=== PATIENT | male | born 1960 | race Caucasian/White ===

== ENCOUNTER → 2016-10-29 | Outpatient (CLI) | payer BC ==
[~2016-10-29] VITALS: Ht 182.9 cm; Wt 108.9 kg
[~2016-10-29] MED LIST: /ONDA4TA OR; /PANT40TA OR; ASPI1TAB24 PO; ASPI81TA45 OR; LISI20TA5 OR; NS 1,000 ML IV SCH; PROPOFOL 200 MG/20 ML VIAL As Ordered ONE; SIMV20TA2 OR; SIMV40TA2 PO; TRAM50TA2 OR; VICO5TAB OR; fish oil PO; omega 3 PO; vitamin d PO
--- NOTE | 2016-10-29 10:33 | ROOR ---
Patient Name: Jaciel Rocha Procedure Date: 10/29/2016 9:53 AM Date of : 1960 Age: 56 Room: [facility] Gender: Male Note Status: Finalized Procedure: Colonoscopy Indications: High risk colon cancer surveillance: Personal history of colon cancer Providers: Roger Arriaga MD Referring MD: AMBER Charles PA-C Requesting Provider: Medicines: Monitored Anesthesia Care Complications: No immediate complications. Procedure: Pre-Anesthesia Assessment: - Prior to the procedure, a History and Physical was performed, and patient medications and allergies were reviewed. The patient is competent. The risks and benefits of the procedure and the sedation options and risks were discussed with the patient. All questions were answered and informed consent was obtained. Patient identification and proposed procedure were verified by the physician, the nurse and the anesthesiologist in the endoscopy suite. Mental Status Examination: alert and oriented. Airway Examination: normal oropharyngeal airway and neck mobility. Respiratory Examination: clear to auscultation. CV Examination: normal. Prophylactic Antibiotics: The patient does not require prophylactic antibiotics. Prior Anticoagulants: The patient has taken no previous anticoagulant or antiplatelet agents. ASA Grade Assessment: II - A patient with mild systemic disease. After reviewing the risks and benefits, the patient was deemed in satisfactory condition to undergo the procedure. The anesthesia plan was to use monitored anesthesia care (MAC). Immediately prior to administration of medications, the patient was re-assessed for adequacy to receive sedatives. The heart rate, respiratory rate, oxygen saturations, blood pressure, adequacy of pulmonary ventilation, and response to care were monitored throughout the procedure. The physical status of the patient was re-assessed after the procedure. The Colonoscope was introduced through the anus and advanced to the ileocolonic anastomosis. The colonoscopy was technically difficult and complex due to inadequate bowel prep and poor endoscopic visualization. The patient tolerated the procedure well. The quality of the bowel preparation was poor. Findings: The perianal and digital rectal examinations were normal. Multiple medium-mouthed diverticula were found in the sigmoid colon and descending colon. There was evidence of a prior end-to-end ileo-colonic anastomosis in the transverse colon. This was patent and was characterized by healthy appearing mucosa. The anastomosis was traversed. The exam was otherwise without abnormality. No additional abnormalities were found on retroflexion. Impression: - Preparation of the colon was poor. - Diverticulosis in the sigmoid colon and in the descending colon. - Patent end-to-end ileo-colonic anastomosis, characterized by healthy appearing mucosa. - The examination was otherwise normal. - No specimens collected. Recommendation: - Discharge patient to home (ambulatory). - Repeat colonoscopy in 3 years for surveillance based on personal history of colon cancer. Roger Arriaga MD Roger Arriaga MD 10/29/2016 10:32:16 AM This report has been signed electronically. Number of Addenda: 0 Note Initiated On: 10/29/2016 9:53 AM Estimated Blood Loss: Estimated blood loss: none.
[2016-10-29 10:50] VITALS: BP 138/78
== END ==
LOC: M OPP 09:07
PROVIDERS: ATTEND Surgery
DX: Z12.11 Encounter for screening for malignant neoplasm of colon (principal); Z85.038 Personal history of other malignant neoplasm of large intestine; K57.30 Diverticulosis of large intestine without perforation or abscess without bleeding; Z98.0 Intestinal bypass and anastomosis status; I10 Essential (primary) hypertension; E78.00 Pure hypercholesterolemia, unspecified; D64.9 Anemia, unspecified; R06.83 Snoring; Z92.21 Personal history of antineoplastic chemotherapy; Z79.82 Long term (current) use of aspirin; Z79.899 Other long term (current) drug therapy

== ENCOUNTER → 2017-01-15 | Outpatient (CLI) | payer BC ==
[~2017-01-15] MED LIST changes: -NS 1,000 ML IV SCH; -PROPOFOL 200 MG/20 ML VIAL As Ordered ONE
[2017-01-15 10:42] LABS: ALBUMIN 3.8 GM/DL (3.2-5.2); ALBUMIN/GLOBULIN RATIO 1.19 (1.00-1.93); ALKALINE PHOSPHATASE 89 U/L (45-117); ALT/SGPT 37 U/L (12-78); ANION GAP 8 MEQ/L (8-16); AST/SGOT 7 U/L (15-37); BILIRUBIN,TOTAL 0.4 MG/DL (0.2-1.0); BLOOD UREA NITROGEN 13 MG/DL (7-18); CALCIUM LEVEL 8.9 MG/DL (8.5-10.1); CARBON DIOXIDE LEVEL 27 MEQ/L (21-32); CHLORIDE LEVEL 106 MEQ/L (98-107); CHOLESTEROL LEVEL 216 MG/DL (<200); CREATININE FOR GFR 0.82 MG/DL (0.70-1.30); GLOMERULAR FILTRATION RATE > 60.0 (>56); GLUCOSE, FASTING 98 MG/DL (70-105); POTASSIUM SERUM 4.3 MEQ/L (3.5-5.1); SODIUM LEVEL 141 MEQ/L (136-145); TRIGLYCERIDES LEVEL 131 MG/DL (<150)
== END ==
LOC: M WUC 08:20
PROVIDERS: ATTEND Physician Assistant
DX: E78.5 Hyperlipidemia, unspecified (principal); I10 Essential (primary) hypertension

== ENCOUNTER → 2017-01-28 | Outpatient (REF) | payer BC | LOC: M LAB REF 17:38 | PROVIDERS: ATTEND Internal Medicine Medical Oncology | DX: C26.0 Malignant neoplasm of intestinal tract, part unspecified (principal) ==

== ENCOUNTER → 2017-05-11 | Outpatient (CLI) | payer BC ==
[~2017-05-11] MED LIST changes: +ASPI-161 PO; -ASPI1TAB24 PO
[2017-05-11 10:08] LABS: ALBUMIN/GLOBULIN RATIO 1.25 (1.00-1.93); ALKALINE PHOSPHATASE 87 U/L (45-117); ALT/SGPT 37 U/L (12-78); ANION GAP 9 MEQ/L (8-16); AST/SGOT 23 U/L (15-37); BILIRUBIN,TOTAL 0.5 MG/DL (0.2-1.0); BLOOD UREA NITROGEN 15 MG/DL (7-18); CALCIUM LEVEL 8.7 MG/DL (8.5-10.1); CARBON DIOXIDE LEVEL 28 MEQ/L (21-32); CHLORIDE LEVEL 103 MEQ/L (98-107); CHOLESTEROL LEVEL 224 MG/DL (<200); CREATININE FOR GFR 0.81 MG/DL (0.70-1.30); GLOMERULAR FILTRATION RATE > 60.0 (>56); GLUCOSE, FASTING 101 MG/DL (70-105); POTASSIUM SERUM 4.5 MEQ/L (3.5-5.1); SODIUM LEVEL 140 MEQ/L (136-145); TOTAL PROTEIN 7.2 GM/DL (6.4-8.2); TRIGLYCERIDES LEVEL 180 MG/DL (<150)
[2017-05-11 10:43] LABS: BASO % 0.5 % (0.0-1.0); EOS # 0.2 10^3/uL (0.0-0.50); EOS % 3.4 % (0.0-3.0); LYMPH # 2.7 10^3/uL (1.5-4.5); LYMPH % 41.3 % (24.0-44.0); MEAN CORPUSCULAR HEMOGLOBIN 28.8 pg (27.0-33.0); MEAN CORPUSCULAR HGB CONC 33.1 g/dl (32.0-36.5); MEAN CORPUSCULAR VOLUME 86.9 fl (80.0-96.0); MONO # 0.4 10^3/uL (0.0-0.8); MONO % 6.8 % (0.0-5.0); NEUTROPHILS # 3.1 10^3/uL (1.8-7.7); NEUTROPHILS % 47.7 % (36.0-66.0); PLATELET COUNT, AUTOMATED 245 10^3/uL (150-450); RED CELL DISTRIBUTION WIDTH 13.2 % (11.5-14.5); WHITE BLOOD COUNT 6.4 10^3/uL (4.0-10.0)
== END ==
LOC: M WUC 08:11
PROVIDERS: ATTEND Physician Assistant
DX: E78.5 Hyperlipidemia, unspecified (principal); Z86.2 Personal history of diseases of the blood and blood-forming organs and certain disorders involving the immune mechanism

== ENCOUNTER → 2017-08-12 | Outpatient (CLI) | payer BC ==
[2017-08-12 08:56] LABS: BASO % 0.4 % (0.0-1.0); EOS # 0.2 10^3/uL (0.0-0.50); EOS % 3.4 % (0.0-3.0); IMMATURE GRANULOCYTE % 0.3 % (0-0); LYMPH # 2.6 10^3/uL (1.5-4.5); LYMPH % 36.1 % (24.0-44.0); MEAN CORPUSCULAR HEMOGLOBIN 28.5 pg (27.0-33.0); MEAN CORPUSCULAR HGB CONC 33.1 g/dl (32.0-36.5); MEAN CORPUSCULAR VOLUME 86.2 fl (80.0-96.0); MONO # 0.6 10^3/uL (0.0-0.8); MONO % 8.6 % (0.0-5.0); NEUTROPHILS # 3.6 10^3/uL (1.8-7.7); NEUTROPHILS % 51.2 % (36.0-66.0); PLATELET COUNT, AUTOMATED 248 10^3/uL (150-450); WHITE BLOOD COUNT 7.1 10^3/uL (4.0-10.0)
[2017-08-12 09:34] LABS: ALBUMIN 4.1 GM/DL (3.2-5.2); ALBUMIN/GLOBULIN RATIO 1.32 (1.00-1.93); ALKALINE PHOSPHATASE 100 U/L (45-117); ALT/SGPT 46 U/L (12-78); ANION GAP 6 MEQ/L (8-16); AST/SGOT 29 U/L (7-37); BILIRUBIN,TOTAL 0.5 MG/DL (0.2-1.0); BLOOD UREA NITROGEN 12 MG/DL (7-18); CALCIUM LEVEL 8.9 MG/DL (8.5-10.1); CARBON DIOXIDE LEVEL 29 MEQ/L (21-32); CHLORIDE LEVEL 108 MEQ/L (98-107); CHOLESTEROL LEVEL 195 MG/DL (<200); CREATININE FOR GFR 0.77 MG/DL (0.70-1.30); GLOMERULAR FILTRATION RATE > 60.0 (>56); GLUCOSE, FASTING 99 MG/DL (70-105); POTASSIUM SERUM 4.3 MEQ/L (3.5-5.1); SODIUM LEVEL 143 MEQ/L (136-145); TOTAL PROTEIN 7.2 GM/DL (6.4-8.2); TRIGLYCERIDES LEVEL 201 MG/DL (<150)
== END ==
LOC: M WUC 08:10
DX: E78.5 Hyperlipidemia, unspecified (principal); Z86.2 Personal history of diseases of the blood and blood-forming organs and certain disorders involving the immune mechanism
CPT/HCPCS: 80053

== ENCOUNTER → 2018-01-28 | Outpatient (REF) | payer BC ==
[2018-01-29 12:05] LABS: CARCINOEMBRYONIC ANTIGEN 0.5 NG/ML (<2.5)
== END ==
LOC: M LAB REF 16:43
DX: C18.9 Malignant neoplasm of colon, unspecified (principal)

== ENCOUNTER → 2018-02-08 | Outpatient (REF) | payer BC ==
[2018-02-09 09:21] LABS: BASO % 0.3 % (0.0-1.0); EOS # 0.2 10^3/uL (0.0-0.50); EOS % 3.3 % (0.0-3.0); HEMATOCRIT 44.6 % (42.0-52.0); HEMOGLOBIN 13.8 g/dl (13.5-17.5); IMMATURE GRANULOCYTE % 0.7 % (0-3.0); LYMPH # 2.2 10^3/uL (1.5-4.5); LYMPH % 36.3 % (24.0-44.0); MEAN CORPUSCULAR HEMOGLOBIN 28.2 pg (27.0-33.0); MEAN CORPUSCULAR HGB CONC 30.9 g/dl (32.0-36.5); MEAN CORPUSCULAR VOLUME 91.2 fl (80.0-96.0); MONO # 0.5 10^3/uL (0.0-0.8); MONO % 7.9 % (0.0-5.0); NEUTROPHILS # 3.1 10^3/uL (1.8-7.7); NEUTROPHILS % 51.5 % (36.0-66.0); PLATELET COUNT, AUTOMATED 232 10^3/uL (150-450); RED BLOOD COUNT 4.89 10^6/uL (4.30-6.10); RED CELL DISTRIBUTION WIDTH 13.7 % (11.5-14.5); WHITE BLOOD COUNT 6.1 10^3/uL (4.0-10.0)
[2018-02-09 09:40] LABS: TOTAL 25(OH) VITAMIN D 13.7 NG/ML (30.0-100.0)
[2018-02-09 09:41] LABS: ALBUMIN 3.8 GM/DL (3.2-5.2); ALBUMIN/GLOBULIN RATIO 1.23 (1.00-1.93); ALKALINE PHOSPHATASE 91 U/L (45-117); ALT/SGPT 34 U/L (12-78); ANION GAP 8 MEQ/L (8-16); AST/SGOT 19 U/L (7-37); BILIRUBIN,TOTAL 0.4 MG/DL (0.2-1.0); BLOOD UREA NITROGEN 14 MG/DL (7-18); CALCIUM LEVEL 8.5 MG/DL (8.5-10.1); CARBON DIOXIDE LEVEL 27 MEQ/L (21-32); CHLORIDE LEVEL 108 MEQ/L (98-107); CHOLESTEROL LEVEL 183 MG/DL (<200); CHOLESTEROL RISK RATIO 3.812 (<5); CREATININE FOR GFR 0.81 MG/DL (0.70-1.30); FREE T4 0.78 NG/DL (0.76-1.46); GLOMERULAR FILTRATION RATE > 60.0 (>56); GLUCOSE, FASTING 105 MG/DL (70-100); HDL CHOLESTEROL 48 MG/DL (>40); LDL CHOLESTEROL 77.8 MG/DL (<100); NON-HDL-C 135 MG/DL; SODIUM LEVEL 143 MEQ/L (136-145); TOTAL PROTEIN 6.9 GM/DL (6.4-8.2); TRIGLYCERIDES LEVEL 286 MG/DL (<150)
== END ==
LOC: M LABDRWAD 09:05
DX: E78.5 Hyperlipidemia, unspecified (principal); Z86.2 Personal history of diseases of the blood and blood-forming organs and certain disorders involving the immune mechanism; Z83.49 Family history of other endocrine, nutritional and metabolic diseases; Z13.21 Encounter for screening for nutritional disorder
CPT/HCPCS: 84443

== ENCOUNTER → 2018-08-16 | Outpatient (REF) | payer BC ==
[2018-08-16 14:37] LABS: BASO % 0.3 % (0.0-1.0); EOS # 0.1 10^3/uL (0.0-0.50); EOS % 1.8 % (0.0-3.0); HEMATOCRIT 44.6 % (42.0-52.0); HEMOGLOBIN 14.4 g/dl (13.5-17.5); LYMPH # 2.2 10^3/uL (1.5-4.5); LYMPH % 31.9 % (24.0-44.0); MEAN CORPUSCULAR HGB CONC 32.3 g/dl (32.0-36.5); MEAN CORPUSCULAR VOLUME 86.6 fl (80.0-96.0); MONO # 0.5 10^3/uL (0.0-0.8); MONO % 7.4 % (0.0-5.0); NEUTROPHILS # 4.1 10^3/uL (1.8-7.7); NEUTROPHILS % 58.3 % (36.0-66.0); PLATELET COUNT, AUTOMATED 247 10^3/uL (150-450); RED BLOOD COUNT 5.15 10^6/uL (4.30-6.10)
[2018-08-16 14:47] LABS: ALBUMIN 4.1 GM/DL (3.2-5.2); ALT/SGPT 70 U/L (12-78); BILIRUBIN,TOTAL 0.5 MG/DL (0.2-1.0); BLOOD UREA NITROGEN 11 MG/DL (7-18); CALCIUM LEVEL 9.3 MG/DL (8.5-10.1); CARBON DIOXIDE LEVEL 29 MEQ/L (21-32); CHLORIDE LEVEL 105 MEQ/L (98-107); CREATININE FOR GFR 0.81 MG/DL (0.70-1.30); GLOMERULAR FILTRATION RATE > 60.0 (>56); GLUCOSE, FASTING 102 MG/DL (70-100); POTASSIUM SERUM 4.2 MEQ/L (3.5-5.1); SODIUM LEVEL 141 MEQ/L (136-145); TOTAL PROTEIN 7.2 GM/DL (6.4-8.2)
[2018-08-16 14:55] LABS: TOTAL 25(OH) VITAMIN D 66.6 NG/ML (30.0-100.0)
[2018-08-16 14:59] LABS: HEMOGLOBIN A1c 5.9 %
== END ==
LOC: M SFHCSACK 09:33
PROVIDERS: ATTEND Physician Assistant
DX: I10 Essential (primary) hypertension (principal); E78.5 Hyperlipidemia, unspecified; R73.09 Other abnormal glucose; E55.9 Vitamin D deficiency, unspecified

== ENCOUNTER → 2018-10-25 | Outpatient (REF) | payer BC | LOC: M SFHCSACK 16:02 | PROVIDERS: ATTEND Physician Assistant | DX: Z53.9 Procedure and treatment not carried out, unspecified reason (principal); I10 Essential (primary) hypertension; E78.5 Hyperlipidemia, unspecified; Z80.42 Family history of malignant neoplasm of prostate; E55.9 Vitamin D deficiency, unspecified ==

== ENCOUNTER → 2019-05-07 | Outpatient (REF) | payer BC ==
[~2019-05-07] MED LIST changes: -/ONDA4TA OR; -/PANT40TA OR; +ONDA-1 OR; +PROT1TAB2 OR; +ZOCO80TA PO
[2019-05-07 17:15] LABS: BASO % 0.3 % (0.0-1.0); EOS # 0.2 10^3/uL (0.0-0.5); EOS % 3.5 % (0.0-3.0); HEMATOCRIT 46.1 % (42.0-52.0); HEMOGLOBIN 14.9 g/dl (13.5-17.5); LYMPH # 2.2 10^3/uL (1.5-5.0); LYMPH % 37.6 % (24.0-44.0); MEAN CORPUSCULAR HEMOGLOBIN 29.4 pg (27.0-33.0); MEAN CORPUSCULAR HGB CONC 32.3 g/dl (32.0-36.5); MEAN CORPUSCULAR VOLUME 90.9 fl (80.0-96.0); MONO # 0.5 10^3/uL (0.0-0.8); MONO % 8.7 % (0.0-5.0); NEUTROPHILS # 2.9 10^3/uL (1.5-8.5); NEUTROPHILS % 49.6 % (36.0-66.0); PLATELET COUNT, AUTOMATED 234 10^3/uL (150-450); RED BLOOD COUNT 5.07 10^6/uL (4.30-6.10)
[2019-05-07 17:19] LABS: ALT/SGPT 30 U/L (12-78); BILIRUBIN,TOTAL 0.5 MG/DL (0.2-1.0); BLOOD UREA NITROGEN 12 MG/DL (7-18); CARBON DIOXIDE LEVEL 28 MEQ/L (21-32); CHLORIDE LEVEL 108 MEQ/L (98-107); CHOLESTEROL LEVEL 202 MG/DL (<200); CHOLESTEROL RISK RATIO 3.607 (<5); CREATININE FOR GFR 0.92 MG/DL (0.70-1.30); GLOMERULAR FILTRATION RATE > 60.0 (>56); GLUCOSE, FASTING 95 MG/DL (70-100); HDL CHOLESTEROL 56 MG/DL (>40); LDL CHOLESTEROL 105 MG/DL (<100); NON-HDL-C 146 MG/DL; POTASSIUM SERUM 4.2 MEQ/L (3.5-5.1); SODIUM LEVEL 143 MEQ/L (136-145); TOTAL PROTEIN 6.9 GM/DL (6.4-8.2); TRIGLYCERIDES LEVEL 206 MG/DL (<150)
[2019-05-09 09:49] LABS: TOTAL 25(OH) VITAMIN D 80.9 NG/ML (30.0-100.0)
== END ==
LOC: M SFHCSACK 08:36
PROVIDERS: ATTEND Physician Assistant
DX: E55.9 Vitamin D deficiency, unspecified (principal)
CPT/HCPCS: 80053; 80061; 82306; 85025; G0103

== ENCOUNTER → 2019-05-07 | Outpatient (CLI) | payer BC | LOC: M ADAMS 08:48 | PROVIDERS: ATTEND Physician Assistant | DX: I10 Essential (primary) hypertension (principal); E78.5 Hyperlipidemia, unspecified; Z80.42 Family history of malignant neoplasm of prostate ==

== ENCOUNTER 2019-10-12 09:33 | Day surgery (SDC) | payer BC ==
[~2019-10-12] VITALS: Ht 185.4 cm; Wt 101.6 kg
[~2019-10-12 09:33] MED LIST changes: +ASPI-255 PO; +NS 1,000 ML IV SCH; +OMEG12004 PO; +ROSU40TA4 PO; -SIMV40TA2 PO; +SIMV40TA20 PO; +VITA50005 PO
[2019-10-12] MEDS ORDERED: propofoL 500 MG/50 ML VIAL As Ordered ONE (10:19)
[2019-10-12] MEDS ORDERED: LIDOCAINE 2% INJ 100 MG/5 ML SDV (FOR ANES.) As Ordered ONE (10:19)
--- NOTE | 2019-10-12 10:57 | ROOR ---
Patient Name: Jaciel Rocha Procedure Date: 10/12/2019 10:18 AM Date of : 1960 Age: 59 Room: [facility] Gender: Male Note Status: Finalized Procedure: Colonoscopy Indications: High risk colon cancer surveillance: Personal history of colon cancer Providers: Roger Arriaga MD Referring MD: AMBER Eason Pa-c Requesting Provider: Medicines: Monitored Anesthesia Care Complications: No immediate complications. Procedure: Pre-Anesthesia Assessment: - Prior to the procedure, a History and Physical was performed, and patient medications and allergies were reviewed. The patient is competent. The risks and benefits of the procedure and the sedation options and risks were discussed with the patient. All questions were answered and informed consent was obtained. Patient identification and proposed procedure were verified by the physician, the nurse and the anesthesiologist in the endoscopy suite. Mental Status Examination: alert and oriented. Airway Examination: normal oropharyngeal airway and neck mobility. Respiratory Examination: clear to auscultation. CV Examination: normal. Prophylactic Antibiotics: The patient does not require prophylactic antibiotics. Prior Anticoagulants: The patient has taken aspirin, last dose was 2 days prior to procedure. ASA Grade Assessment: III - A patient with severe systemic disease. After reviewing the risks and benefits, the patient was deemed in satisfactory condition to undergo the procedure. The anesthesia plan was to use monitored anesthesia care (MAC). Immediately prior to administration of medications, the patient was re-assessed for adequacy to receive sedatives. The heart rate, respiratory rate, oxygen saturations, blood pressure, adequacy of pulmonary ventilation, and response to care were monitored throughout the procedure. The physical status of the patient was re-assessed after the procedure. The Colonoscope was introduced through the anus and advanced to the ileocolonic anastomosis. The colonoscopy was technically difficult and complex due to poor bowel prep, a tortuous colon and the patient's body habitus. Successful completion of the procedure was aided by applying abdominal pressure and lavage. Findings: The perianal and digital rectal examinations were normal. Multiple small-mouthed diverticula were found in the sigmoid colon and descending colon. The anastomosis appeared normal. not traversed, has a lot of semi solid stool at the area of the anastomosis, needing multiple lavage, multiple attempts at reentry to the area. No big masses seen but I could have missed small polyps as several areas of semisolid stool pooling despite multiple lavages Impression: - Diverticulosis in the sigmoid colon and in the descending colon. - The colonic anastomosis is normal. - No specimens collected. Recommendation: - Discharge patient to home (ambulatory). - Repeat colonoscopy in 1 year for surveillance. Roger Arriaga MD Roger Arriaga MD 10/12/2019 10:56:45 AM Electronically signed by Roger Arriaga MD Number of Addenda: 0 Note Initiated On: 10/12/2019 10:18 AM Estimated Blood Loss: Estimated blood loss: none.
[2019-10-12 11:13] VITALS: BP 119/72
== END 2019-10-12 11:29 | disposition home or self-care (01) ==
LOC: M OPP 09:33
PROVIDERS: ATTEND Surgery
DX: Z12.11 Encounter for screening for malignant neoplasm of colon (principal); Z85.038 Personal history of other malignant neoplasm of large intestine; K57.30 Diverticulosis of large intestine without perforation or abscess without bleeding; Z79.82 Long term (current) use of aspirin; Z79.899 Other long term (current) drug therapy

== ENCOUNTER → 2019-11-25 | Outpatient (REF) | payer BC ==
[~2019-11-25] MED LIST changes: -NS 1,000 ML IV SCH
== END ==
LOC: M SFHCADAM 11:08
PROVIDERS: ATTEND Physician Assistant
DX: D50.9 Iron deficiency anemia, unspecified (principal); E78.5 Hyperlipidemia, unspecified; R73.09 Other abnormal glucose; E55.9 Vitamin D deficiency, unspecified

== ENCOUNTER → 2020-04-24 | Outpatient (CLI) | payer BC ==
--- NOTE | 2020-05-14 16:27 | REP ---
LEFT SHOULDER SERIES CLINICAL: Left shoulder pain. TECHNIQUE: Internal rotation, external rotation, and Y view of the left shoulder. FINDINGS: Osseous structures, joint spaces, and surrounding soft tissues are age appropriate. No evidence for acute fracture or dislocation. No overt osteoarthritic degenerative changes are appreciated. Subacromial space is normal. No periarticular calcifications or loose bodies identified. IMPRESSION: Normal age appropriate left shoulder radiographs. MTDD
--- NOTE | 2020-05-16 07:29 | REP ---
ACROMIOCLAVICULAR JOINT STUDY CLINICAL: Left shoulder pain. TECHNIQUE: Neutral and weightbearing views of the right and left acromioclavicular joints. FINDINGS: The acromioclavicular joints are symmetric and stable on neutral and weightbearing views. No overt arthritic changes are appreciated. IMPRESSION: Normal symmetric appearance to the bilateral acromioclavicular joints. MTDD
== END ==
LOC: M ADAMS 15:11
PROVIDERS: ATTEND Physician Assistant
DX: M25.512 Pain in left shoulder (principal)

== ENCOUNTER → 2020-04-24 | Outpatient (CLI) | payer BC ==
[2020-04-24 17:18] LABS: CHOLESTEROL RISK RATIO 3.333 (<5)
[2020-04-24 17:26] LABS: TOTAL 25(OH) VITAMIN D 59.8 NG/ML (30.0-100.0)
== END ==
LOC: M LABDRWAD 15:14
PROVIDERS: ATTEND Physician Assistant
DX: E78.5 Hyperlipidemia, unspecified (principal); E55.9 Vitamin D deficiency, unspecified; Z12.5 Encounter for screening for malignant neoplasm of prostate

== ENCOUNTER → 2020-08-06 | Outpatient (CLI) | payer BC | LOC: M LABDRWAD 14:25 | PROVIDERS: ATTEND Ophthalmology | DX: G70.00 Myasthenia gravis without (acute) exacerbation (principal) ==

== ENCOUNTER → 2020-10-26 | Outpatient (CLI) | payer BC | LOC: M LABDRWAD 14:17 | PROVIDERS: ATTEND Psychiatry & Neurology Neurology | DX: G70.00 Myasthenia gravis without (acute) exacerbation (principal) ==

== ENCOUNTER → 2020-11-16 | Outpatient (CLI) | payer BC | LOC: M LABSMTC 10:18 | PROVIDERS: ATTEND Anesthesiology | DX: Z01.812 Encounter for preprocedural laboratory examination (principal) ==

== ENCOUNTER 2020-11-21 07:43 | Day surgery (SDC) | payer BC ==
[~2020-11-21] VITALS: Ht 185.4 cm; Wt 109.3 kg
[~2020-11-21 07:43] MED LIST changes: +NS 1,000 ML IV ONE
--- NOTE | 2020-11-21 09:53 | ROOR ---
Patient Name: Jaciel Rocha Procedure Date: 11/21/2020 9:15 AM Date of : 1960 Age: 60 Room: [facility] Gender: Male Note Status: Finalized Procedure: Colonoscopy Indications: High risk colon cancer surveillance: Personal history of colon cancer Providers: Roger Arriaga MD Referring MD: Deniz Wheeler MD Requesting Provider: Medicines: Monitored Anesthesia Care Complications: No immediate complications. Procedure: Pre-Anesthesia Assessment: - Prior to the procedure, a History and Physical was performed, and patient medications and allergies were reviewed. The patient is competent. The risks and benefits of the procedure and the sedation options and risks were discussed with the patient. All questions were answered and informed consent was obtained. Patient identification and proposed procedure were verified by the physician, the nurse and the anesthesiologist in the endoscopy suite. Mental Status Examination: alert and oriented. Airway Examination: normal oropharyngeal airway and neck mobility. Respiratory Examination: clear to auscultation. CV Examination: normal. Prophylactic Antibiotics: The patient does not require prophylactic antibiotics. Prior Anticoagulants: The patient has taken no previous anticoagulant or antiplatelet agents except for aspirin. ASA Grade Assessment: III - A patient with severe systemic disease. After reviewing the risks and benefits, the patient was deemed in satisfactory condition to undergo the procedure. The anesthesia plan was to use monitored anesthesia care (MAC). Immediately prior to administration of medications, the patient was re-assessed for adequacy to receive sedatives. The heart rate, respiratory rate, oxygen saturations, blood pressure, adequacy of pulmonary ventilation, and response to care were monitored throughout the procedure. The physical status of the patient was re-assessed after the procedure. The Colonoscope was introduced through the anus and advanced to the ileocolonic anastomosis. The colonoscopy was somewhat difficult due to a tortuous colon. Successful completion of the procedure was aided by applying abdominal pressure. The patient tolerated the procedure well. The quality of the bowel preparation was adequate to identify polyps. Findings: The perianal and digital rectal examinations were normal. A few small-mouthed diverticula were found in the sigmoid colon. There was evidence of a prior [id number] ileo-colonic anastomosis in the transverse colon. This was patent and was characterized by erythema. The anastomosis was traversed. This was biopsied with a cold forceps for histology. Estimated blood loss was minimal. The retroflexed view of the distal rectum and anal verge was normal and showed no anal or rectal abnormalities. Impression: - Diverticulosis in the sigmoid colon. - Patent [id number]-[id number] ileo-colonic anastomosis, characterized by erythema. Biopsied. - The distal rectum and anal verge are normal on retroflexion view. Recommendation: - Discharge patient to home (ambulatory). - Await pathology results. - Telephone my office for pathology results in 1 week. - Repeat colonoscopy in 3 years for surveillance. Procedure Code(s): --- Professional --- 68924, Colonoscopy, flexible; with biopsy, single or multiple Diagnosis Code(s): --- Professional --- Z85.038, Personal history of other malignant neoplasm of large intestine Z98.0, Intestinal bypass and anastomosis status K57.30, Diverticulosis of large intestine without perforation or abscess without bleeding CPT copyright 2019 [employer]. All rights reserved. The codes documented in this report are preliminary and upon mate chief review may be revised to meet current compliance requirements. Roger Arriaga MD Roger Arriaga MD 11/21/2020 9:53:23 AM Electronically signed by Roger Arriaga MD Number of Addenda: 0 Note Initiated On: 11/21/2020 9:15 AM Estimated Blood Loss: Estimated blood loss was minimal.
[2020-11-21 10:14] VITALS: BP 131/76
== END 2020-11-21 10:16 | disposition home or self-care (01) ==
LOC: M OPP 07:43
PROVIDERS: ATTEND Surgery
DX: Z12.11 Encounter for screening for malignant neoplasm of colon (principal); Z85.038 Personal history of other malignant neoplasm of large intestine; D12.6 Benign neoplasm of colon, unspecified; K57.30 Diverticulosis of large intestine without perforation or abscess without bleeding; Z98.0 Intestinal bypass and anastomosis status; I10 Essential (primary) hypertension; E78.5 Hyperlipidemia, unspecified; Z79.82 Long term (current) use of aspirin; Z79.899 Other long term (current) drug therapy

== ENCOUNTER → 2021-02-02 | Outpatient (CLI) | payer BC ==
[~2021-02-02] MED LIST changes: +ERGO500029 PO; -NS 1,000 ML IV ONE; -VITA50005 PO
[2021-02-02 11:51] LABS: BLOOD UREA NITROGEN 11 MG/DL (7-18); CALCIUM LEVEL 9.2 MG/DL (8.5-10.1); CARBON DIOXIDE LEVEL 31 MEQ/L (21-32); CHLORIDE LEVEL 107 MEQ/L (98-107); CREATININE FOR GFR 0.85 MG/DL (0.70-1.30); FREE T4 0.76 NG/DL (0.76-1.46); GLOMERULAR FILTRATION RATE > 60.0 (>56); GLUCOSE, FASTING 100 MG/DL (70-100); POTASSIUM SERUM 4.3 MEQ/L (3.5-5.1); SODIUM LEVEL 139 MEQ/L (136-145); THYROID STIMULATING HORMONE 0.562 uIU/ML (0.358-3.740)
[2021-02-04 17:00] LABS: CORTISOL AM 7.1 UG/DL (4.3-22.4); TESTOSTERONE 49 NG/DL (241-827)
[2021-02-04 17:01] LABS: FOLLICLE STIMULATING HORMONE 7.1 mIU/mL (1.4-18.1); LUTEINIZING HORMONE 3.4 mIU/mL (1.5-9.3)
== END ==
LOC: M LAB 10:49
PROVIDERS: ATTEND Internal Medicine Endocrinology, Diabetes & Metabolism
DX: D49.7 Neoplasm of unspecified behavior of endocrine glands and other parts of nervous system (principal)

== ENCOUNTER 2021-03-15 14:24 | Emergency (ER) | payer BC ==
[~2021-03-15] VITALS: Ht 185.4 cm; Wt 113.6 kg
--- NOTE | 2021-03-15 15:17 | REP ---
INDICATION: CHEST PAIN. COMPARISON: Comparison chest x-ray is from November 22, 2015. TECHNIQUE: Portable upright AP chest radiograph. FINDINGS: There is a granulomatous nodule in the left infrahilar region unchanged. Pleural angles are sharp. Lungs are otherwise clear. Cardiomediastinal silhouette is unremarkable. EKG monitoring electrodes are seen.. IMPRESSION: No active disease. <Electronically signed by Gonzalez Cole > 03/15/21 0110
[2021-03-15 15:18] LABS: BASO % 0.3 % (0.0-1.0); EOS # 0.2 10^3/uL (0.0-0.5); EOS % 2.5 % (0.0-3.0); HEMATOCRIT 42.3 % (42.0-52.0); LYMPH # 2.2 10^3/uL (1.5-5.0); LYMPH % 28.4 % (24.0-44.0); MEAN CORPUSCULAR HEMOGLOBIN 28.7 pg (27.0-33.0); MEAN CORPUSCULAR HGB CONC 33.1 g/dl (32.0-36.5); MEAN CORPUSCULAR VOLUME 86.7 fl (80.0-96.0); MONO # 0.7 10^3/uL (0.0-0.8); MONO % 9.5 % (2.0-8.0); NEUTROPHILS # 4.5 10^3/uL (1.5-8.5); NEUTROPHILS % 59.2 % (36.0-66.0); PLATELET COUNT, AUTOMATED 249 10^3/uL (150-450); RED BLOOD COUNT 4.88 10^6/uL (4.30-6.10); WHITE BLOOD COUNT 7.6 10^3/uL (4.0-10.0)
[2021-03-15 15:28] LABS: INR 0.96; PROTHROMBIN TIME 13.2 SECONDS (12.7-14.5)
[2021-03-15 15:31] LABS: D-DIMER QUANT 284.07 ng/ml (<500)
[2021-03-15 15:48] LABS: ALBUMIN 4.2 GM/DL (3.2-5.2); ALT/SGPT 37 U/L (12-78); BILIRUBIN,DIRECT 0.1 MG/DL (0.0-0.2); BILIRUBIN,TOTAL 0.3 MG/DL (0.2-1.0); BLOOD UREA NITROGEN 12 MG/DL (7-18); CALCIUM LEVEL 9.2 MG/DL (8.5-10.1); CARBON DIOXIDE LEVEL 29 MEQ/L (21-32); CHLORIDE LEVEL 109 MEQ/L (98-107); CK-MB VALUE MASS 8.6 NG/ML (<3.6); CPK CREATINE PHOSPHOKINASE 466 U/L (39-308); CREATININE FOR GFR 0.94 MG/DL (0.70-1.30); GLOMERULAR FILTRATION RATE > 60.0 (>56); GLUCOSE, FASTING 99 MG/DL (70-100); LIPASE 171 U/L (73-393); MB/CK RELATIVE INDEX 1.85 (< OR =4); POTASSIUM SERUM 3.7 MEQ/L (3.5-5.1); SODIUM LEVEL 144 MEQ/L (136-145); TROPONIN I < 0.02 NG/ML (< 0.10)
[2021-03-15 16:30] VITALS: BP 140/68
--- NOTE | 2021-03-16 09:31 | ECGEPIP ---
[facility] - ED Test Date: 2021-03-15 Pat Name: JESSICA AC Department: Room: - Gender: Male [employer] Operator: LISA : 1960 Requested By: FRANCIS GIMENEZ Order Number: [id number] Reading MD: Carmita Matthews Measurements Intervals [place] Rate: 75 P: 61 ME: 168 QRS: -17 QRSD: 112 T: 84 QT: 414 QTc: 462 Interpretive Statements Normal sinus rhythm Incomplete right bundle branch block NSTTW abnormalities similar 11/22/15 Electronically Signed on 03-16-2021 9:31:04 EDT by Carmita Matthews
== END 2021-03-15 16:57 | disposition home or self-care (01) ==
LOC: M ED 14:24 → EDBD 14:24 → M ED 16:57
DX: R07.89 Other chest pain (principal); I45.19 Other right bundle-branch block; E78.5 Hyperlipidemia, unspecified; Z80.0 Family history of malignant neoplasm of digestive organs; Z92.21 Personal history of antineoplastic chemotherapy; Z90.49 Acquired absence of other specified parts of digestive tract; Z79.82 Long term (current) use of aspirin; Z79.899 Other long term (current) drug therapy

== ENCOUNTER → 2021-04-13 | Outpatient (CLI) | payer BC ==
[2021-04-13 10:45] LABS: CHOLESTEROL RISK RATIO 3.395 (<5)
== END ==
LOC: M LAB 09:03
PROVIDERS: ATTEND Physician Assistant
DX: E78.00 Pure hypercholesterolemia, unspecified (principal); R74.8 Abnormal levels of other serum enzymes

== ENCOUNTER → 2021-05-13 | Outpatient (REF) | payer BC ==
[2021-05-13 16:33] LABS: PROLACTIN 3.4 NG/ML (2.1-17.7)
== END ==
LOC: M LABDRWAD 15:10
PROVIDERS: ATTEND Internal Medicine Endocrinology, Diabetes & Metabolism
DX: Z13.89 Encounter for screening for other disorder (principal)

== ENCOUNTER → 2021-05-13 | Outpatient (REF) | payer BC | LOC: M SFHCADAM 11:18 | PROVIDERS: ATTEND Physician Assistant | DX: R74.8 Abnormal levels of other serum enzymes (principal) ==

== ENCOUNTER → 2021-09-21 | Outpatient (CLI) | payer BC ==
[2021-09-21 09:25] LABS: HEMATOCRIT 48.7 % (42.0-52.0); HEMOGLOBIN 15.7 g/dl (13.5-17.5); MEAN CORPUSCULAR HEMOGLOBIN 28.5 pg (27.0-33.0); MEAN CORPUSCULAR HGB CONC 32.2 g/dl (32.0-36.5); MEAN CORPUSCULAR VOLUME 88.5 fl (80.0-96.0); PLATELET COUNT, AUTOMATED 238 10^3/uL (150-450); WHITE BLOOD COUNT 6.1 10^3/uL (4.0-10.0)
[2021-09-21 09:49] LABS: ALBUMIN 3.9 GM/DL (3.2-5.2); ALT/SGPT 33 U/L (12-78); BILIRUBIN,TOTAL 0.5 MG/DL (0.2-1.0); BLOOD UREA NITROGEN 13 MG/DL (7-18); CALCIUM LEVEL 9.3 MG/DL (8.5-10.1); CARBON DIOXIDE LEVEL 29 MEQ/L (21-32); CHLORIDE LEVEL 108 MEQ/L (98-107); CHOLESTEROL LEVEL 228 MG/DL (<200); CHOLESTEROL RISK RATIO 4.851 (<5); CREATININE FOR GFR 0.86 MG/DL (0.70-1.30); GLOMERULAR FILTRATION RATE > 60.0 (>56); GLUCOSE, FASTING 96 MG/DL (70-100); HDL CHOLESTEROL 47 MG/DL (>40); LDL CHOLESTEROL 134 MG/DL (<100); NON-HDL-C 181 MG/DL; POTASSIUM SERUM 4.5 MEQ/L (3.5-5.1); SODIUM LEVEL 142 MEQ/L (136-145); TOTAL PROTEIN 7.2 GM/DL (6.4-8.2); TRIGLYCERIDES LEVEL 234 MG/DL (<150)
== END ==
LOC: M LAB 08:21
PROVIDERS: ATTEND Physician Assistant
DX: E78.00 Pure hypercholesterolemia, unspecified (principal)

== ENCOUNTER → 2021-09-30 | Outpatient (CLI) | payer BC ==
[2021-09-30 21:38] LABS: PROLACTIN 2.1 NG/ML (2.1-17.7)
== END ==
LOC: M WUC 15:16
PROVIDERS: ATTEND Internal Medicine Endocrinology, Diabetes & Metabolism
DX: D49.7 Neoplasm of unspecified behavior of endocrine glands and other parts of nervous system (principal)

== ENCOUNTER → 2022-02-15 | Outpatient (CLI) | payer BC ==
[2022-02-15 09:17] LABS: BASO % 0.5 % (0.0-1.0); EOS # 0.2 10^3/uL (0.0-0.5); EOS % 2.7 % (0.0-3.0); HEMATOCRIT 44.3 % (42.0-52.0); LYMPH # 2.5 10^3/uL (1.5-5.0); MEAN CORPUSCULAR HEMOGLOBIN 29.1 pg (27.0-33.0); MEAN CORPUSCULAR HGB CONC 33.9 g/dl (32.0-36.5); MONO # 0.6 10^3/uL (0.0-0.8); MONO % 7.5 % (2.0-8.0); NEUTROPHILS # 4.3 10^3/uL (1.5-8.5); NEUTROPHILS % 56.2 % (36.0-66.0); PLATELET COUNT, AUTOMATED 222 10^3/uL (150-450); RED BLOOD COUNT 5.15 10^6/uL (4.30-6.10); WHITE BLOOD COUNT 7.6 10^3/uL (4.0-10.0)
[2022-02-15 09:53] LABS: ALT/SGPT 38 U/L (12-78); BILIRUBIN,TOTAL 0.8 MG/DL (0.2-1.0); BLOOD UREA NITROGEN 8 MG/DL (7-18); CALCIUM LEVEL 9.5 MG/DL (8.8-10.2); CARBON DIOXIDE LEVEL 28 MEQ/L (21-32); CHLORIDE LEVEL 107 MEQ/L (98-107); CREATININE FOR GFR 0.83 MG/DL (0.70-1.30); GLOMERULAR FILTRATION RATE > 60.0 (>49); GLUCOSE, FASTING 100 MG/DL (70-100); POTASSIUM SERUM 3.9 MEQ/L (3.5-5.1); SODIUM LEVEL 140 MEQ/L (136-145); TOTAL PROTEIN 6.7 GM/DL (6.4-8.2)
== END ==
LOC: M LAB 08:59
PROVIDERS: ATTEND Internal Medicine Medical Oncology
DX: C18.9 Malignant neoplasm of colon, unspecified (principal)

== ENCOUNTER → 2022-04-08 | Outpatient (CLI) | payer BC ==
[~2022-04-08] MED LIST changes: +ATOR40TA75
== END ==
LOC: M ADAMS 15:37
PROVIDERS: ATTEND Internal Medicine Endocrinology, Diabetes & Metabolism
DX: D49.7 Neoplasm of unspecified behavior of endocrine glands and other parts of nervous system (principal)

== ENCOUNTER → 2022-08-23 | Outpatient (CLI) | payer BC ==
[2022-08-23 11:49] LABS: CHOLESTEROL RISK RATIO 3.43 (<5); HDL CHOLESTEROL 47.7 MG/DL (>40); LDL CHOLESTEROL 91.5 MG/DL (<100)
== END ==
LOC: M LAB 10:56
PROVIDERS: ATTEND Physician Assistant
DX: E78.5 Hyperlipidemia, unspecified (principal); R74.8 Abnormal levels of other serum enzymes; Z12.5 Encounter for screening for malignant neoplasm of prostate
CPT/HCPCS: 36415; 80061; 82550; G0103

== ENCOUNTER → 2022-10-29 | Outpatient (CLI) | payer BC ==
[2022-10-29 17:40] LABS: PROLACTIN 2.49 NG/ML (2.1-17.7)
[2022-10-29 17:42] LABS: FREE T4 1.04 NG/DL (0.89-1.76)
== END ==
LOC: M WUC 14:56
PROVIDERS: ATTEND Internal Medicine Endocrinology, Diabetes & Metabolism
DX: D49.7 Neoplasm of unspecified behavior of endocrine glands and other parts of nervous system (principal)

== ENCOUNTER → 2023-02-23 | Outpatient (REF) | payer BC ==
[~2023-02-23] MED LIST changes: +CABE0.5T
[2023-02-23 13:42] LABS: HEMATOCRIT 42.5 % (42.0-52.0); HEMOGLOBIN 13.8 g/dl (13.5-17.5); MEAN CORPUSCULAR HEMOGLOBIN 29.1 pg (27.0-33.0); MEAN CORPUSCULAR HGB CONC 32.5 g/dl (32.0-36.5); MEAN CORPUSCULAR VOLUME 89.7 fl (80.0-96.0); PLATELET COUNT, AUTOMATED 262 10^3/uL (150-450); RED BLOOD COUNT 4.74 10^6/uL (4.30-6.10); WHITE BLOOD COUNT 5.9 10^3/uL (4.0-10.0)
[2023-02-23 14:03] LABS: ALBUMIN 3.9 G/DL (3.2-5.2); ALKALINE PHOSPHATASE 82 U/L (46-116); ALT/SGPT 28 U/L (7.0-40); AST/SGOT 15 U/L (<34); BILIRUBIN,TOTAL 0.7 MG/DL (0.3-1.2); BLOOD UREA NITROGEN 9 MG/DL (9-23); CALCIUM LEVEL 10.2 MG/DL (8.3-10.6); CARBON DIOXIDE LEVEL 29 MMOL/L (20-31); CHLORIDE LEVEL 104 MMOL/L (98-107); CREATININE FOR GFR 0.77 MG/DL (0.70-1.30); CREATININE, URINE 48.7 MG/DL; GLOMERULAR FILTRATION RATE > 60.0 (>49); GLUCOSE, FASTING 100 MG/DL (74-106); MALB URINE SIEMENS < 3.0 MG/L; MAU/CREAT RATIO 6.1 MCG/MG (0.0-30.0); POTASSIUM SERUM 4.4 MMOL/L (3.5-5.1); SODIUM LEVEL 139 MMOL/L (136-145); TOTAL PROTEIN 6.4 G/DL (5.7-8.2)
== END ==
LOC: M SFHCADAM 08:24
PROVIDERS: ATTEND Physician Assistant
DX: I10 Essential (primary) hypertension (principal); R97.20 Elevated prostate specific antigen [PSA]; Z85.038 Personal history of other malignant neoplasm of large intestine; E78.5 Hyperlipidemia, unspecified
CPT/HCPCS: 80053; 82043; 85027; G0103

== ENCOUNTER → 2023-06-17 | Outpatient (CLI) | payer BC ==
[2023-06-17 11:00] LABS: CORTISOL AM 16.7 UG/DL (4.3-22.4)
[2023-06-17 11:04] LABS: FREE T4 1.05 NG/DL (0.89-1.76)
[2023-06-17 11:05] LABS: PROLACTIN 3.55 NG/ML (2.1-17.7)
== END ==
LOC: M WUC 08:25
PROVIDERS: ATTEND Internal Medicine Endocrinology, Diabetes & Metabolism
DX: D49.7 Neoplasm of unspecified behavior of endocrine glands and other parts of nervous system (principal)

== ENCOUNTER → 2023-07-23 | Day surgery (SDC) | payer BC ==
[~2023-07-23] VITALS: Ht 182.9 cm; Wt 103.1 kg
[~2023-07-23] MED LIST changes: -ATOR40TA75; +ATOR40TA75 PO; +BSS IRRIG/VANCO(10MG)/TOBRA(5MG)/EPINEPH(1:1000-0.5CC)500ML BAG-ORONLY IR ONE; -CABE0.5T; +CABE0.5T PO; +CEFUROXIME 1MG/0.1ML INTRACAMERAL INJ As Ordered ONE; +CYCLOPENTOLATE 1% OPHTH SOLN 2ML BTL OS SCH; +LIDOCAINE 1% SDV 5ML VIAL As Ordered ONE; +LIDOCAINE 3.5 % 1ML OPHTH TOPICAL GEL OU ONE; +MIDAZOLAM INJ 2MG/2ML VIAL As Ordered ONE; +OFLOXACIN 0.3 % (OCUFLOX) OPTH SOL 5ML OS ONE; +PHENYLEPHRINE 10% OPHTH SOL 5ML OS PRN; +PHENYLEPHRINE 2.5% OPHTH SOL 2ML OS SCH; +TROPICAMIDE 1% OPHTH SOLN 15ML OS SCH; +VITMTA PO; +fentaNYL 100 MCG/2 ML INJECTION As Ordered ONE
[2023-07-23 15:05] VITALS: BP 136/79; TEMP 97.3; O2SAT 94
== END | disposition home or self-care (01) ==
LOC: M SDC 13:26
PROVIDERS: ATTEND Ophthalmology
DX: H25.12 Age-related nuclear cataract, left eye (principal); E78.00 Pure hypercholesterolemia, unspecified; Z85.038 Personal history of other malignant neoplasm of large intestine; Z79.899 Other long term (current) drug therapy; Z79.82 Long term (current) use of aspirin; Z90.49 Acquired absence of other specified parts of digestive tract; Z92.21 Personal history of antineoplastic chemotherapy
CPT/HCPCS: 66984; J0697; J2250; J3010; V2632

== ENCOUNTER 2023-08-06 06:05 | Day surgery (SDC) | payer BC ==
[~2023-08-06] VITALS: Ht 182.9 cm; Wt 103.4 kg
[~2023-08-06 06:05] MED LIST changes: +BAYE81TA10 PO; -CEFUROXIME 1MG/0.1ML INTRACAMERAL INJ As Ordered ONE; +CYCLOPENTOLATE 1% OPHTH SOLN 2ML BTL OD SCH; -CYCLOPENTOLATE 1% OPHTH SOLN 2ML BTL OS SCH; -LIDOCAINE 1% SDV 5ML VIAL As Ordered ONE; -MIDAZOLAM INJ 2MG/2ML VIAL As Ordered ONE; +OFLOXACIN 0.3 % (OCUFLOX) OPTH SOL 5ML OD ONE; -OFLOXACIN 0.3 % (OCUFLOX) OPTH SOL 5ML OS ONE; +PHENYLEPHRINE 10% OPHTH SOL 5ML OD PRN; -PHENYLEPHRINE 10% OPHTH SOL 5ML OS PRN; +PHENYLEPHRINE 2.5% OPHTH SOL 2ML OD SCH; -PHENYLEPHRINE 2.5% OPHTH SOL 2ML OS SCH; +TROPICAMIDE 1% OPHTH SOLN 15ML OD SCH; -TROPICAMIDE 1% OPHTH SOLN 15ML OS SCH; -fentaNYL 100 MCG/2 ML INJECTION As Ordered ONE
[2023-08-06] MEDS ORDERED: CEFUROXIME 1MG/0.1ML INTRACAMERAL INJ As Ordered ONE (06:35)
[2023-08-06] MEDS ORDERED: LIDOCAINE 1% SDV 5ML VIAL As Ordered ONE (06:35)
[2023-08-06] MEDS ORDERED: fentaNYL 100 MCG/2 ML INJECTION As Ordered ONE (07:20)
[2023-08-06] MEDS ORDERED: MIDAZOLAM INJ 2MG/2ML VIAL As Ordered ONE (07:20)
[2023-08-06 08:05] VITALS: BP 132/76; TEMP 97.4; O2SAT 94
== END 2023-08-06 08:11 | disposition home or self-care (01) ==
LOC: M SDC 06:05
PROVIDERS: ATTEND Ophthalmology
DX: H25.11 Age-related nuclear cataract, right eye (principal); E78.00 Pure hypercholesterolemia, unspecified; Z85.038 Personal history of other malignant neoplasm of large intestine; Z79.899 Other long term (current) drug therapy; Z79.82 Long term (current) use of aspirin; Z92.21 Personal history of antineoplastic chemotherapy; Z90.49 Acquired absence of other specified parts of digestive tract
CPT/HCPCS: 66984; J0697; J2250; J3010; V2632

== ENCOUNTER → 2023-10-22 | Outpatient (REF) | payer BC ==
[~2023-10-22] MED LIST changes: -ASPI-161 PO; +ASPI-615 PO; -BSS IRRIG/VANCO(10MG)/TOBRA(5MG)/EPINEPH(1:1000-0.5CC)500ML BAG-ORONLY IR ONE; -CYCLOPENTOLATE 1% OPHTH SOLN 2ML BTL OD SCH; -LIDOCAINE 3.5 % 1ML OPHTH TOPICAL GEL OU ONE; -OFLOXACIN 0.3 % (OCUFLOX) OPTH SOL 5ML OD ONE; -PHENYLEPHRINE 10% OPHTH SOL 5ML OD PRN; -PHENYLEPHRINE 2.5% OPHTH SOL 2ML OD SCH; -TROPICAMIDE 1% OPHTH SOLN 15ML OD SCH
== END ==
LOC: M LAB REF 16:42
PROVIDERS: ATTEND Nurse Practitioner Family
DX: D48.5 Neoplasm of uncertain behavior of skin (principal)

== ENCOUNTER 2024-02-12 07:59 | Day surgery (SDC) | payer BC ==
[~2024-02-12] VITALS: Ht 182.9 cm; Wt 97.0 kg
[~2024-02-12 07:59] MED LIST changes: +NS 1,000 ML IV ONE; -ROSU40TA4 PO; +ROSU40TA63 PO; +THERTAB52 PO
[2024-02-12] MEDS ORDERED: propofoL 200 MG/20 ML VIAL As Ordered ONE (09:20)
[2024-02-12] MEDS ORDERED: LIDOCAINE 2% 100MG/5ML SDV (FOR ANES.) As Ordered ONE (09:20)
[2024-02-12 10:12] VITALS: TEMP 97.1
[2024-02-12 10:28] VITALS: BP 138/74; O2SAT 96
== END 2024-02-12 10:33 | disposition home or self-care (01) ==
LOC: M OPP 07:59
PROVIDERS: ATTEND Surgery
DX: Z12.11 Encounter for screening for malignant neoplasm of colon (principal); Z85.038 Personal history of other malignant neoplasm of large intestine; Z80.0 Family history of malignant neoplasm of digestive organs; D12.6 Benign neoplasm of colon, unspecified; Z98.0 Intestinal bypass and anastomosis status; K57.30 Diverticulosis of large intestine without perforation or abscess without bleeding; Z79.2 Long term (current) use of antibiotics; Z79.82 Long term (current) use of aspirin

== ENCOUNTER → 2024-02-23 | Outpatient (REF) | payer BC ==
[~2024-02-23] MED LIST changes: -NS 1,000 ML IV ONE
[2024-02-23 12:55] LABS: HEMATOCRIT 44.8 % (42.0-52.0); HEMOGLOBIN 14.3 g/dl (13.5-17.5); MEAN CORPUSCULAR HEMOGLOBIN 27.7 pg (27.0-33.0); MEAN CORPUSCULAR HGB CONC 31.9 g/dl (32.0-36.5); MEAN CORPUSCULAR VOLUME 86.7 fl (80.0-96.0); PLATELET COUNT, AUTOMATED 246 10^3/uL (150-450); RED BLOOD COUNT 5.17 10^6/uL (4.30-6.10); WHITE BLOOD COUNT 6.3 10^3/uL (4.0-10.0)
[2024-02-23 13:09] LABS: ALBUMIN 4.2 G/DL (3.2-5.2); ALKALINE PHOSPHATASE 84 U/L (46-116); ALT/SGPT 22 U/L (7.0-40); AST/SGOT 12 U/L (<34); BILIRUBIN,TOTAL 0.8 MG/DL (0.3-1.2); BLOOD UREA NITROGEN 10 MG/DL (9-23); CALCIUM LEVEL 9.9 MG/DL (8.3-10.6); CARBON DIOXIDE LEVEL 30 MMOL/L (20-31); CHLORIDE LEVEL 109 MMOL/L (98-107); CHOLESTEROL LEVEL 156 MG/DL (<200); CHOLESTEROL RISK RATIO 2.86 (<5); CREATININE FOR GFR 0.85 MG/DL (0.70-1.30); GLOMERULAR FILTRATION RATE > 60.0 (>49); GLUCOSE, FASTING 108 MG/DL (74-106); HDL CHOLESTEROL 54.4 MG/DL (>40); LDL CHOLESTEROL 85.2 MG/DL (<100); NON-HDL-C 101.6 MG/DL; POTASSIUM SERUM 4.6 MMOL/L (3.5-5.1); PSA SCREENING 1.71 NG/ML (< 4.00); SODIUM LEVEL 142 MMOL/L (136-145); TOTAL PROTEIN 6.7 G/DL (5.7-8.2); TRIGLYCERIDES LEVEL 82 MG/DL (<150)
[2024-02-23 13:14] LABS: THYROID STIMULATING HORMONE 0.602 uIU/ML (0.55-4.78)
[2024-02-23 13:17] LABS: FREE T4 1.26 NG/DL (0.89-1.76)
[2024-02-23 13:34] LABS: CREATININE, URINE 36.2 MG/DL; MALB URINE SIEMENS < 3.0 MG/L; MAU/CREAT RATIO 8.2 MCG/MG (0.0-30.0)
== END ==
LOC: M SFHCADAM 08:28
PROVIDERS: ATTEND Physician Assistant
DX: Z12.5 Encounter for screening for malignant neoplasm of prostate (principal); I10 Essential (primary) hypertension; E78.00 Pure hypercholesterolemia, unspecified; D22.9 Melanocytic nevi, unspecified; D35.2 Benign neoplasm of pituitary gland; I77.810 Thoracic aortic ectasia

== ENCOUNTER → 2024-02-23 | Outpatient (REF) | payer BC ==
[2024-02-23 14:37] LABS: IRON (FE) 45 UG/DL (65-175); PERCENT SATURATION 11.3 % (19.7-50.0); TOTAL IRON BINDING CAPACITY 400 UG/DL (250-425)
[2024-02-23 14:38] LABS: ALBUMIN 4.3 G/DL (3.2-5.2); ALKALINE PHOSPHATASE 85 U/L (46-116); ALT/SGPT 27 U/L (7.0-40); AST/SGOT 14 U/L (<34); BASO % 0.5 % (0.0-1.0); BILIRUBIN,TOTAL 0.7 MG/DL (0.3-1.2); BLOOD UREA NITROGEN 11 MG/DL (9-23); CALCIUM LEVEL 9.8 MG/DL (8.3-10.6); CARBON DIOXIDE LEVEL 29 MMOL/L (20-31); CARCINOEMBRYONIC ANTIGEN < 2.0 NG/ML (<2.5); CHLORIDE LEVEL 107 MMOL/L (98-107); CREATININE FOR GFR 0.79 MG/DL (0.70-1.30); EOS # 0.1 10^3/uL (0.0-0.5); EOS % 0.9 % (0.0-3.0); GLOMERULAR FILTRATION RATE > 60.0 (>49); GLUCOSE, FASTING 106 MG/DL (74-106); HEMATOCRIT 44.2 % (42.0-52.0); HEMOGLOBIN 14.2 g/dl (13.5-17.5); LYMPH # 1.3 10^3/uL (1.5-5.0); LYMPH % 19.4 % (24.0-44.0); MEAN CORPUSCULAR HGB CONC 32.1 g/dl (32.0-36.5); MEAN CORPUSCULAR VOLUME 87.2 fl (80.0-96.0); MONO # 0.4 10^3/uL (0.0-0.8); MONO % 5.8 % (2.0-8.0); NEUTROPHILS # 4.7 10^3/uL (1.5-8.5); NEUTROPHILS % 73.2 % (36.0-66.0); PLATELET COUNT, AUTOMATED 245 10^3/uL (150-450); POTASSIUM SERUM 4.7 MMOL/L (3.5-5.1); RED BLOOD COUNT 5.07 10^6/uL (4.30-6.10); SODIUM LEVEL 142 MMOL/L (136-145); TOTAL PROTEIN 6.7 G/DL (5.7-8.2); WHITE BLOOD COUNT 6.4 10^3/uL (4.0-10.0)
[2024-02-23 14:39] LABS: FERRITIN 9.5 NG/ML (10.5-307.3)
== END ==
LOC: M LABDRWAD 12:49
PROVIDERS: ATTEND Specialist
DX: C18.9 Malignant neoplasm of colon, unspecified (principal)

== ENCOUNTER 2024-04-03 19:22 | Emergency (ER) | payer BC ==
[2024-04-03] MEDS: ETOMIDATE INJ 20MG/10ML VIAL IV STA (19:33)
[2024-04-03] MEDS: ROCURONIUM BROMIDE 50MG/5ML VIAL IV SCH ×2 (19:48→23:13)
[2024-04-03] MEDS: propofoL 1,000 MG in IV 1 EA IV SCH (19:49)
[2024-04-03 19:52] LABS: BASO % 0.2 % (0.0-1.0); HEMATOCRIT 40.3 % (42.0-52.0); HEMOGLOBIN 13.3 g/dl (13.5-17.5); LYMPH # 1.3 10^3/uL (1.5-5.0); LYMPH % 7.6 % (24.0-44.0); MEAN CORPUSCULAR HEMOGLOBIN 27.9 pg (27.0-33.0); MEAN CORPUSCULAR VOLUME 84.7 fl (80.0-96.0); MONO # 0.8 10^3/uL (0.0-0.8); MONO % 4.6 % (2.0-8.0); NEUTROPHILS # 14.6 10^3/uL (1.5-8.5); NEUTROPHILS % 87.2 % (36.0-66.0); PLATELET COUNT, AUTOMATED 364 10^3/uL (150-450); RED BLOOD COUNT 4.76 10^6/uL (4.30-6.10); WHITE BLOOD COUNT 16.7 10^3/uL (4.0-10.0)
[2024-04-03] MEDS ORDERED: ISOVUE-370 76% 100ML VIAL As Ordered ONE (19:55)
[2024-04-03 20:03] LABS: INR 1.08; PARTIAL THROMBOPLASTIN TIME 24.2 SECONDS (24.8-34.2); PROTHROMBIN TIME 13.7 SECONDS (12.5-14.5)
[2024-04-03 20:19] LABS: CK-MB VALUE MASS 2.5 NG/ML (<3.6); ETHYL ALCOHOL (ETHANOL) < 0.003 % (0.000-0.010); LIPASE 47 U/L (12-53)
[2024-04-03 20:20] LABS: AMYLASE 74 U/L (30-118); CPK CREATINE PHOSPHOKINASE 122 U/L (46-171); MB/CK RELATIVE INDEX 2.04 (< OR =4)
[2024-04-03 20:21] LABS: ALBUMIN 3.9 G/DL (3.2-5.2); ALKALINE PHOSPHATASE 80 U/L (46-116); ALT/SGPT 20 U/L (7.0-40); AST/SGOT 13 U/L (<34); BILIRUBIN,DIRECT 0.3 MG/DL (<0.4); BILIRUBIN,TOTAL 0.8 MG/DL (0.3-1.2); TOTAL PROTEIN 6.5 G/DL (5.7-8.2)
[2024-04-03] MEDS ORDERED: MIDAZOLAM INJ 2MG/2ML VIAL As Ordered ONE (20:33)
[2024-04-03 20:34] LABS: ABG BASE EXCESS -2.6 (-2.0-2.0); ABG HCO3 23.2 MMOL/L (22.0-26.0); ABG PARTIAL PRESSURE O2 211.9 mmHg (75.0-100.0); ABG STANDARD HCO3 22.3 MMOL/L. (22.0-26.0); ABG TOTAL CO2 24.5 MMOL/L (23.0-31.0); ABG pH (ARTERIAL) 7.339 UNITS (7.350-7.450)
[2024-04-03] MEDS: MIDAZOLAM INJ 2MG/2ML VIAL IV STA ×2 (20:38→20:53)
[2024-04-03] MEDS: PIPERACILLIN/TAZOBACTAM SOD 4.5 GM in D5W MINI-BAG PLUS 50 ML IV ONE (20:45)
[2024-04-03] MEDS ORDERED: MIDAZOLAM 100MG/100ML-0.9%NACL 100 MG in IV 1 EA IV SCH (20:55)
[2024-04-03 21:12] VITALS: BP 162/80; TEMP 97.3
[2024-04-03 21:13] VITALS: BP 162/80; TEMP 97.3
[2024-04-03 21:23] VITALS: BP 154/78; O2SAT 100
[2024-04-03 21:28] VITALS: BP 154/78; TEMP 97.2; O2SAT 100
[2024-04-03 21:38] LABS: HEMATOCRIT 31.7 % (42.0-52.0); MEAN CORPUSCULAR HEMOGLOBIN 28.4 pg (27.0-33.0); MEAN CORPUSCULAR HGB CONC 32.5 g/dl (32.0-36.5); MEAN CORPUSCULAR VOLUME 87.3 fl (80.0-96.0); RED BLOOD COUNT 3.63 10^6/uL (4.30-6.10); WHITE BLOOD COUNT 14.7 10^3/uL (4.0-10.0)
[2024-04-03 21:39] LABS: HEMOGLOBIN 10.3 g/dl (13.5-17.5)
[2024-04-03 21:40] LABS: PLATELET COUNT, AUTOMATED 246 10^3/uL (150-450)
[2024-04-03 21:55] LABS: APPEARANCE, URINE CLEAR (CLEAR); BACTERIA, URINE AUTO NEGATIVE (NEGATIVE); BILIRUBIN, URINE AUTO NEGATIVE (NEGATIVE); BLOOD, URINE BLOOD 1+ (NEGATIVE); COLOR, URINE STRAW (YELLOW); GLUCOSE, URINE (UA) AUTO NEGATIVE (NEGATIVE); KETONE, URINE AUTO NEGATIVE (NEGATIVE); LEUKOCYTE ESTERASE, URINE AUTO NEGATIVE (NEGATIVE); MUCUS, URINE SMALL (NEGATIVE); NITRITE, URINE AUTO NEGATIVE (NEGATIVE); PROTEIN, URINE AUTO NEGATIVE (NEGATIVE); RBC, URINE AUTO 2 /HPF (0-3); SPECIFIC GRAVITY URINE AUTO 1.004 (1.002-1.035); SQUAMOUS EPITHELIAL CELL UR AU 0 /HPF (0-6); UROBILINOGEN, URINE AUTO 0.2 mg/dL (0.0-2.0); WBC, URINE AUTO 3 /HPF (0-3)
[2024-04-03 21:57] LABS: AMPHETAMINES LEVEL URINE NEGATIVE (NEGATIVE); BARBITURATES URINE NEGATIVE (NEGATIVE); BENZODIAZEPINES URINE NEGATIVE (NEGATIVE); CANNABINOIDS URINE NEGATIVE (NEGATIVE); COCAINE METABOLITE URINE NEGATIVE (NEGATIVE); METHADONE URINE NEGATIVE (NEGATIVE); OPIATES URINE NEGATIVE (NEGATIVE); PHENCYCLIDINE URINE NEGATIVE (NEGATIVE)
[2024-04-03] MEDS: dexmedeTOMidine 200 MCG in IV 1 EA IV SCH (22:05)
[2024-04-03 22:43] VITALS: BP 121/76; O2SAT 100
== END 2024-04-04 01:24 | disposition short-term general hospital (02) ==
LOC: EDBD 19:22 → M ED 19:22
DX: S11.81XA Laceration without foreign body of other specified part of neck, initial encounter (principal); S61.512A Laceration without foreign body of left wrist, initial encounter; T79.7XXA Traumatic subcutaneous emphysema, initial encounter; R00.0 Tachycardia, unspecified; I45.10 Unspecified right bundle-branch block; Y92.019 Unspecified place in single-family (private) house as the place of occurrence of the external cause; Y93.9 Activity, unspecified; Y99.9 Unspecified external cause status; X78.1XXA Intentional self-harm by knife, initial encounter
CPT/HCPCS: 31500; 36415; 36430; 36600; 70450; 70490; 70496; 70498; 71045; 73100; 80047; 80076; 80307; 81001; 82077; 82150; 82550; 82553; 82803; 83605; 83690; 84484; 85025; 85027; 85610; 85730; 86850; 86900; 86901; 86920; 93005; 93041; 94760; 96365; 96366; 96374; 96375; 99291; 99292; J2543; P9016; Q9967

== ENCOUNTER → 2024-06-06 | Outpatient (CLI) | payer BC ==
[~2024-06-06] MED LIST changes: -ROSU40TA63 PO; +ROSU40TA81 PO
== END ==
LOC: M WUC 13:45
PROVIDERS: ATTEND Internal Medicine Endocrinology, Diabetes & Metabolism
DX: D49.7 Neoplasm of unspecified behavior of endocrine glands and other parts of nervous system (principal)

== ENCOUNTER → 2024-09-26 | Outpatient (REF) | payer BC ==
[2024-09-26 18:18] LABS: BASO % 0.2 % (0.0-1.0); EOS # 0.1 10^3/uL (0.0-0.5); EOS % 1.2 % (0.0-3.0); HEMATOCRIT 39.2 % (42.0-52.0); HEMOGLOBIN 11.9 g/dl (13.5-17.5); LYMPH # 2.2 10^3/uL (1.5-5.0); LYMPH % 21.4 % (24.0-44.0); MEAN CORPUSCULAR HEMOGLOBIN 24.3 pg (27.0-33.0); MEAN CORPUSCULAR HGB CONC 30.4 g/dl (32.0-36.5); MEAN CORPUSCULAR VOLUME 80.2 fl (80.0-96.0); MONO % 9.4 % (2.0-8.0); NEUTROPHILS # 7.1 10^3/uL (1.5-8.5); NEUTROPHILS % 67.5 % (36.0-66.0); PLATELET COUNT, AUTOMATED 259 10^3/uL (150-450); RED BLOOD COUNT 4.89 10^6/uL (4.30-6.10); WHITE BLOOD COUNT 10.4 10^3/uL (4.0-10.0)
[2024-09-26 18:37] LABS: ALBUMIN 3.8 G/DL (3.2-5.2); ALKALINE PHOSPHATASE 100 U/L (40-129); ALT/SGPT 29 U/L (7.0-40); AST/SGOT 24 U/L (<34); BILIRUBIN,TOTAL 0.3 MG/DL (0.3-1.2); BLOOD UREA NITROGEN 10 MG/DL (9-23); CALCIUM LEVEL 9.2 MG/DL (8.3-10.6); CARBON DIOXIDE LEVEL 28 MMOL/L (20-31); CHLORIDE LEVEL 106 MMOL/L (98-107); CREATININE FOR GFR 0.83 MG/DL (0.70-1.30); GLOMERULAR FILTRATION RATE > 60.0 (>49); GLUCOSE, FASTING 91 MG/DL (74-106); IRON (FE) 10 UG/DL (65-175); PERCENT SATURATION 2.9 % (19.7-50.0); POTASSIUM SERUM 4.2 MMOL/L (3.5-5.1); SODIUM LEVEL 144 MMOL/L (136-145); TOTAL IRON BINDING CAPACITY 345 UG/DL (250-425); TOTAL PROTEIN 6.9 G/DL (5.7-8.2)
[2024-09-26 18:43] LABS: FERRITIN 29.9 NG/ML (10.5-307.3)
[2024-09-26 18:44] LABS: FREE T4 1.04 NG/DL (0.89-1.76); THYROID STIMULATING HORMONE 0.603 uIU/ML (0.55-4.78); TOTAL 25(OH) VITAMIN D 90.2 NG/ML (20.0-100.0)
== END ==
LOC: M SFHCADAM 14:45
PROVIDERS: ATTEND Physician Assistant
DX: Z85.038 Personal history of other malignant neoplasm of large intestine (principal); E55.9 Vitamin D deficiency, unspecified; D50.9 Iron deficiency anemia, unspecified; R63.4 Abnormal weight loss; R53.83 Other fatigue

== ENCOUNTER → 2024-10-20 | Outpatient (REF) | payer BC ==
[2024-10-20 19:12] LABS: IRON (FE) 72 UG/DL (65-175); PERCENT SATURATION 19.7 % (19.7-50.0); TOTAL IRON BINDING CAPACITY 365 UG/DL (250-425)
[2024-10-20 19:13] LABS: BASO % 0.3 % (0.0-1.0); BLOOD UREA NITROGEN 11 MG/DL (9-23); CALCIUM LEVEL 9.5 MG/DL (8.3-10.6); CARBON DIOXIDE LEVEL 30 MMOL/L (20-31); CHLORIDE LEVEL 108 MMOL/L (98-107); CREATININE FOR GFR 0.82 MG/DL (0.70-1.30); EOS # 0.1 10^3/uL (0.0-0.5); EOS % 0.9 % (0.0-3.0); GLOMERULAR FILTRATION RATE > 60.0 (>49); GLUCOSE, FASTING 92 MG/DL (74-106); HEMATOCRIT 42.7 % (42.0-52.0); HEMOGLOBIN 13.3 g/dl (13.5-17.5); LYMPH % 22.6 % (24.0-44.0); MEAN CORPUSCULAR HEMOGLOBIN 24.9 pg (27.0-33.0); MEAN CORPUSCULAR HGB CONC 31.1 g/dl (32.0-36.5); MONO # 0.5 10^3/uL (0.0-0.8); MONO % 5.5 % (2.0-8.0); NEUTROPHILS # 6.2 10^3/uL (1.5-8.5); NEUTROPHILS % 70.4 % (36.0-66.0); PLATELET COUNT, AUTOMATED 251 10^3/uL (150-450); RED BLOOD COUNT 5.34 10^6/uL (4.30-6.10); SODIUM LEVEL 146 MMOL/L (136-145); WHITE BLOOD COUNT 8.8 10^3/uL (4.0-10.0)
[2024-10-20 19:14] LABS: FERRITIN 23.8 NG/ML (10.5-307.3)
[2024-10-20 19:15] LABS: TOTAL 25(OH) VITAMIN D 79.2 NG/ML (20.0-100.0)
== END ==
LOC: M SFHCADAM 14:08
PROVIDERS: ATTEND Physician Assistant
DX: D50.9 Iron deficiency anemia, unspecified (principal); R53.83 Other fatigue

== ENCOUNTER → 2024-10-26 | Outpatient (REF) | payer BC | LOC: M SFHCADAM 13:05 | PROVIDERS: ATTEND Physician Assistant | DX: D50.9 Iron deficiency anemia, unspecified (principal); R53.83 Other fatigue ==

== ENCOUNTER → 2024-11-29 | Outpatient (CLI) | payer BC ==
[2024-11-29 13:57] LABS: BLOOD UREA NITROGEN 18 MG/DL (9-23); CALCIUM LEVEL 9.5 MG/DL (8.3-10.6); CARBON DIOXIDE LEVEL 30 MMOL/L (20-31); CHLORIDE LEVEL 106 MMOL/L (98-107); CREATININE FOR GFR 0.89 MG/DL (0.70-1.30); GLOMERULAR FILTRATION RATE > 90.0 (>49); GLUCOSE, FASTING 100 MG/DL (74-106); SODIUM LEVEL 145 MMOL/L (136-145)
[2024-11-29 14:00] LABS: FREE T4 1.28 NG/DL (0.89-1.76); TESTOSTERONE 395 NG/DL (241-827)
[2024-11-29 14:01] LABS: CORTISOL AM 26.7 UG/DL (4.3-22.4)
== END ==
LOC: M LABDRWAD 08:31
PROVIDERS: ATTEND Nurse Practitioner Family
DX: D49.7 Neoplasm of unspecified behavior of endocrine glands and other parts of nervous system (principal); E29.1 Testicular hypofunction

== ENCOUNTER → 2024-12-13 | Outpatient (CLI) | payer BC | LOC: M ADAMS 08:07 | PROVIDERS: ATTEND Nurse Practitioner Family | DX: D49.7 Neoplasm of unspecified behavior of endocrine glands and other parts of nervous system (principal) ==

== ENCOUNTER → 2025-03-22 | Outpatient (CLI) | payer BC ==
[~2025-03-22] MED LIST changes: +FLUO40CA PO; +HYDR-3713 PO
== END ==
LOC: M RAD 14:30
PROVIDERS: ATTEND Physician Assistant
DX: R63.4 Abnormal weight loss (principal); J84.10 Pulmonary fibrosis, unspecified

== ENCOUNTER → 2025-03-23 | Outpatient (REF) | payer OTHER | LOC: M SFHCADAM 11:39 | PROVIDERS: ATTEND Physician Assistant | DX: Z12.5 Encounter for screening for malignant neoplasm of prostate (principal) ==

== ENCOUNTER → 2025-05-02 | Outpatient (REF) | payer MEDICAID, OTHER, SELFPAY ==
[2025-05-02 18:18] LABS: BASO # 0.0 10^3/uL (0.0-0.2); BASO % 0.5 % (0.0-1.0); EOS # 0.4 10^3/uL (0.0-0.5); EOS % 5.4 % (0.0-3.0); LYMPH # 2.7 10^3/uL (1.5-5.0); LYMPH % 40.6 % (24.0-44.0); MONO # 0.7 10^3/uL (0.0-0.8); MONO % 10.3 % (2.0-8.0); NEUTROPHILS # 2.8 10^3/uL (1.5-8.5); NEUTROPHILS % 43.0 % (36.0-66.0); PLATELET COUNT, AUTOMATED 226 10^3/uL (150-450)
[2025-05-02 18:39] LABS: ESTIMATED AVERAGE GLUCOSE 100.0 MG/DL (60-110)
[2025-05-02 18:45] LABS: ALT/SGPT 23 U/L (7.0-40); AST/SGOT 19 U/L (<34); CALCIUM LEVEL 9.6 MG/DL (8.3-10.6); CARBON DIOXIDE LEVEL 31 MMOL/L (20-31); CHLORIDE LEVEL 103 MMOL/L (98-107); CHOLESTEROL LEVEL 146 MG/DL (<200); CHOLESTEROL RISK RATIO 2.12 (<5); CREATININE FOR GFR 0.92 MG/DL (0.70-1.30); GLOMERULAR FILTRATION RATE > 90.0 (>49); LDL CHOLESTEROL 65.2 MG/DL (<100); NON-HDL-C 77.2 MG/DL; POTASSIUM SERUM 4.5 MMOL/L (3.5-5.1); SODIUM LEVEL 140 MMOL/L (136-145); TRIGLYCERIDES LEVEL 60 MG/DL (<150)
== END ==
LOC: M SFHCADAM 14:26
PROVIDERS: ATTEND Physician Assistant
DX: F32.2 Major depressive disorder, single episode, severe without psychotic features (principal); I77.810 Thoracic aortic ectasia; E78.00 Pure hypercholesterolemia, unspecified; Z13.1 Encounter for screening for diabetes mellitus

== ENCOUNTER → 2025-07-25 | Outpatient (CLI) | payer BC, OTHER, SELFPAY ==
[~2025-07-25] MED LIST changes: +E-Z-GAS II EFFERVESCENT PACKET (SODIUM BICARB./CITRIC ACID/SIMETHICONE) As Ordered ONE; +E-Z-HD 98% w/w 340 GM SUSP BTL As Ordered ONE; +E-Z-PAQUE 96% w/w SUSP 176 GM BTL As Ordered ONE
== END ==
LOC: M RAD 09:45
PROVIDERS: ATTEND Physician Assistant
DX: R63.4 Abnormal weight loss (principal); K59.00 Constipation, unspecified; Z85.038 Personal history of other malignant neoplasm of large intestine